=== PATIENT | male | born 1955 | race Two or more races ===

== ENCOUNTER 2019-09-12 12:47 | Inpatient (IN) | payer MEDICAID, OTHER ==
[~2019-09-12] VITALS: Ht 167.6 cm; Wt 95.4 kg
[2019-09-12] MEDS ORDERED: SODIUM CHLORIDE 0.9% 1,000 ML IVB ONE (13:25)
[2019-09-12] MEDS ORDERED: PROMETHAZINE HCL 25 MG/ML 1ML IV PRN (13:30)
[2019-09-12 13:35] LABS: Basophils # (auto) 0.1 10 ^3/uL (0-0.2); Basophils % (auto) 0.7 % (0.0-2.0); Eosinophils # (auto) 0.2 10 ^3/uL (0-0.8); Eosinophils % (auto) 1.7 % (0.0-7.0); Hematocrit 45.7 % (41.0-53.0); Hemoglobin 15.6 g/dL (13.5-17.5); Lymphocytes # (auto) 1.3 10 ^3/uL (0.4-5.4); Lymphocytes % (auto) 13.3 % (10.0-50.0); Mean Corpuscular Volume 91.2 fL (80.0-100.0); Monocytes # (auto) 0.6 10 ^3/uL (0-1.3); Monocytes % (auto) 6.1 % (0.0-12.0); Neutrophils # (auto) 7.8 10 ^3/uL (1.6-8.6); Neutrophils % (auto) 78.2 % (37.0-80.0); Nucleated Red Blood Cells % 0.2 %; Platelet Count (auto) 204 10^3/uL (140-450); Red Blood Cells 5.02 10^6/uL (4.5-5.90); Red Cell Distribution Width 13.2 % (11.8-14.3); White Blood Cell 9.9 10^3/uL (4.4-10.8)
[2019-09-12 13:50] LABS: INR 1.09 (0.9-1.15); Partial Thromboplastin Time 24.3 sec (23.64-32.05)
[2019-09-12 13:52] LABS: Magnesium 2.1 mg/dL (1.6-2.6)
[2019-09-12 13:53] LABS: Anion Gap 8 (5-15); Blood Urea Nitrogen 12 mg/dL (7-18); Calcium 8.9 mg/dL (8.5-10.1); Carbon Dioxide 22 mmol/L (21-32); Chloride 108 mmol/L (98-107); Glucose 153 mg/dL (74-106); Potassium 3.9 mmol/L (3.5-5.1); Sodium 138 mmol/L (136-145)
[2019-09-12 13:58] LABS: Alanine Aminotransferase 34 U/L (16-61); Alkaline Phosphatase 89 U/L (45-117); Aspartate Aminotransferase 17 U/L (15-37); BUN/Creatinine Ratio 14.3; Bilirubin, Total 0.4 mg/dL (0.2-1.0); GFR African American 118 mL/min; GFR Non-African American 98 mL/min; Total Protein 8.5 g/dL (6.4-8.2)
[2019-09-12] MEDS ORDERED: ONDANSETRON ODT 4 MG TAB PO ONE (14:30)
[2019-09-12 15:08] LABS: Urine Bacteria NONE SEEN /hpf (None Seen); Urine Blood Negative /uL (Negative); Urine Mucus FEW (None Seen); Urine Specific Gravity 1.022 (1.001-1.035); Urine WBC 1 /hpf (0 - 3)
[2019-09-12] MEDS ORDERED: GLIP10TA9 PO (15:13)
[2019-09-12] MEDS ORDERED: TAMS0.4C36 PO (15:13)
[2019-09-12] MEDS ORDERED: METF-372 PO (15:13)
[2019-09-12] MEDS ORDERED: TRAZ100T3 PO (15:13)
[2019-09-12] MEDS ORDERED: INSUINJ2 SC (15:13)
[2019-09-12] MEDS ORDERED: SIMV-8 PO (15:13)
[2019-09-12] MEDS ORDERED: MECLIZINE HCL 25 MG TAB PO ONE (15:15)
[2019-09-12] MEDS ORDERED: ONDANSETRON HCL 4 MG/2 ML VIAL IV PRN (17:45)
[2019-09-12] MEDS ORDERED: MORPHINE SULF INJ 2 MG/ML SYRINGE 1ML IV PRN (17:45)
[2019-09-12] MEDS ORDERED: DEXTROSE (50%) 50ML SYRG IV PRN (17:45)
[2019-09-12] MEDS ORDERED: ACETAMINOPHEN 500 MG TAB PO PRN (17:45)
[2019-09-12] MEDS ORDERED: HYDROcodone-ACET 5/325MG TAB PO PRN (17:45)
[2019-09-12] MEDS ORDERED: NITROGLYCERIN 0.4 MG SL TAB SL PRN (17:45)
[2019-09-12] MEDS ORDERED: ASPirin-EC 81 mg tab PO ONE (17:45)
[2019-09-12] MEDS: TAMSULOSIN HYDROCHLORIDE 0.4 MG CAP PO SCH (18:01)
[2019-09-12] MEDS: ATORVASTATIN 20 MG TAB PO SCH (18:02)
[2019-09-12 18:13] LABS: Cholesterol 187 mg/dL (< 200)
[2019-09-12 18:16] LABS: HDL Cholesterol 39 mg/dL (40-59); LDL Cholesterol 125 mg/dL (< 100); Triglycerides 155 mg/dL (< 150)
[2019-09-12 20:30] VITALS: BP 117/60
[2019-09-12] MEDS: ACCU-CHEK COMFORT CURVE STRIP VI SCH (21:40)
[2019-09-12] MEDS: InsuLIN REG 1unit/0.01ml Soln (100units/ml) SC SCH (21:58)
[2019-09-12 22:39] VITALS: BP 117/60
[2019-09-12 23:14] VITALS: BP 117/60
[2019-09-13 05:10] VITALS: BP 146/67
[2019-09-13] MEDS: InsuLIN REG 1unit/0.01ml Soln (100units/ml) SC SCH ×4 (05:54→22:05)
[2019-09-13] MEDS: ACCU-CHEK COMFORT CURVE STRIP VI SCH ×4 (05:54→22:05)
[2019-09-13 09:00] VITALS: BP 147/70
[2019-09-13] MEDS: FAMOTIDINE 20 MG TAB PO SCH (09:08)
[2019-09-13 13:00] VITALS: BP 153/80
[2019-09-13] MEDS ORDERED: cloNIDine HCL 0.1 MG TAB PO PRN (13:00)
[2019-09-13 17:00] VITALS: BP 139/78
[2019-09-13] MEDS: TAMSULOSIN HYDROCHLORIDE 0.4 MG CAP PO SCH (17:50)
[2019-09-13] MEDS: ATORVASTATIN 20 MG TAB PO SCH (17:51)
[2019-09-13] MEDS ORDERED: LORazepam 2MG/ML-1ML VIAL IV PRN (19:15)
[2019-09-13 22:27] VITALS: BP 138/78
[2019-09-14 05:08] VITALS: BP 137/75
[2019-09-14] MEDS: ACCU-CHEK COMFORT CURVE STRIP VI SCH ×3 (06:24→17:33)
[2019-09-14] MEDS: InsuLIN REG 1unit/0.01ml Soln (100units/ml) SC SCH ×3 (06:25→17:00)
[2019-09-14 06:31] LABS: Basophils # (auto) 0.1 10 ^3/uL (0-0.2); Basophils % (auto) 1.3 % (0.0-2.0); Eosinophils # (auto) 0.5 10 ^3/uL (0-0.8); Eosinophils % (auto) 6.1 % (0.0-7.0); Hematocrit 44.5 % (41.0-53.0); Hemoglobin 15.1 g/dL (13.5-17.5); Lymphocytes % (auto) 37.1 % (10.0-50.0); Mean Corpuscular Hemoglobin 31.1 pg (28.0-32.0); Mean Corpuscular Hgb Conc. 34.1 g/dL (32.0-36.0); Mean Corpuscular Volume 91.2 fL (80.0-100.0); Monocytes # (auto) 0.8 10 ^3/uL (0-1.3); Monocytes % (auto) 9.8 % (0.0-12.0); Neutrophils # (auto) 3.7 10 ^3/uL (1.6-8.6); Neutrophils % (auto) 45.7 % (37.0-80.0); Nucleated Red Blood Cells % 0.1 %; Platelet Count (auto) 203 10^3/uL (140-450); Red Blood Cells 4.88 10^6/uL (4.5-5.90); Red Cell Distribution Width 13.3 % (11.8-14.3); White Blood Cell 8.2 10^3/uL (4.4-10.8)
[2019-09-14 06:33] LABS: BUN/Creatinine Ratio 16.7; Calcium 8.5 mg/dL (8.5-10.1); Potassium 4.1 mmol/L (3.5-5.1)
[2019-09-14 08:42] VITALS: BP 139/75
[2019-09-14] MEDS: FAMOTIDINE 20 MG TAB PO SCH (08:44)
[2019-09-14 12:31] VITALS: BP 133/75
[2019-09-14 16:53] VITALS: BP 123/85
[2019-09-14] MEDS: TAMSULOSIN HYDROCHLORIDE 0.4 MG CAP PO SCH (17:33)
[2019-09-14] MEDS: ATORVASTATIN 20 MG TAB PO SCH (17:33)
[2019-09-14 18:18] VITALS: BP 123/85
== END 2019-09-14 19:00 | disposition home or self-care (01) | DRG 111 ==
LOC: ER 12:47 → TELE 12:48 → TELE-WESTW 20:09
PROVIDERS: ADMIT Nurse Practitioner Acute Care; ATTEND Internal Medicine
DX: H83.09 Labyrinthitis, unspecified ear (principal); E11.21 Type 2 diabetes mellitus with diabetic nephropathy; G45.9 Transient cerebral ischemic attack, unspecified; I10 Essential (primary) hypertension; R29.810 Facial weakness; G47.10 Hypersomnia, unspecified; K86.1 Other chronic pancreatitis; E78.5 Hyperlipidemia, unspecified; F32.9 Major depressive disorder, single episode, unspecified; Z79.82 Long term (current) use of aspirin; Z79.4 Long term (current) use of insulin; Z11.59 Encounter for screening for other viral diseases; Z79.899 Other long term (current) drug therapy; Z82.49 Family history of ischemic heart disease and other diseases of the circulatory system; Z83.3 Family history of diabetes mellitus; Z88.0 Allergy status to penicillin
CPT/HCPCS: 36415; 70450; 70551; 71045; 74176; 80048; 80053; 80061; 81001; 82150; 82962; 83036; 83690; 83735; 84443; 84484; 85025; 85610; 85730; 93005; 93306; 93886; 96361; 96374; G0378; J1815; Q0162